=== PATIENT | female | born 1940 | race Caucasian/White ===

== ENCOUNTER 2018-03-25 17:16 | Emergency (ER) | payer MEDICARE, SELFPAY ==
[2018-03-25] VITALS (7 sets, daily range): BP systolic 91–119; BP diastolic 54–71; PULSE 77–98; RESP 18–31; TEMP 36.4; O2SAT 92–100
--- NOTE | 2018-03-25 17:29 | ED_ITS ---
HPI - Alcohol <BRYANT Dos Santos - Last Filed: 03/25/18 22:30> General Chief Complaint: Toxicology Problem Stated Complaint: ALCOHOL WITHDRAWAL Time Seen by Provider: 03/25/18 17:28 Source: patient Mode of arrival: ambulatory Limitations: no limitations History of Present Illness HPI narrative: 78-year-old female with history of alcohol abuse here for complaint of desired to have inpatient alcohol detox treatment. She states her last drink was just prior to arrival. She does not know how many drinks she had today. She reports having had alcohol problem for the last for 5 years. She denies any suicidal homicidal ideation. She denies any complications with alcohol withdrawal. She denies any drug use. No other concerns or complaints at this time. MD complaint: desires rehab Related Data Previous Rx's Medication Instructions Recorded fluoxetine 20 mg capsule 20 mg PO DAILY #30 cap 03/21/18 pantoprazole 40 mg tablet,delayed 40 mg PO DAILY #30 tab 03/21/18 release lorazepam [Ativan] 1 mg PO BEDTIME #18 tab 03/25/18 ondansetron [Zofran ODT] 4 mg PO Q6-8H PRN #12 tab 03/25/18 Allergies Allergy/AdvReac Type Severity Reaction Status Date / Time No Known Drug Allergies Allergy Verified 03/21/18 13:24 Review of Systems <BRYANT Dos Santos - Last Filed: 03/25/18 22:30> Review of Systems Patient desires alcohol detox treatment Constitutional Denies chills, Denies fever(s), Denies lethargy and Denies weakness Eyes Denies change in vision, Denies eye discharge, Denies irritation and Denies loss of vision Cardiovascular Denies chest pain, Denies irregular heart rhythm, Denies lightheadedness, Denies palpitations, Denies dyspnea, Denies dyspnea on exertion and Denies orthopnea Respiratory Denies cough, Denies dyspnea, Denies dyspnea on exertion and Denies wheezing Gastrointestinal Gastrointestinal: Denies abdominal pain, Denies change in bowel habits, Denies diarrhea, Denies nausea and Denies vomiting Genitourinary Denies hematuria, Denies flank pain, Denies urinary incontinence and Denies urinary urgency Musculoskeletal Denies back pain, Denies muscle weakness, Denies numbness and Denies tingling Integumentary/Breasts Denies pruritus, Denies erythema, Denies rash and Denies wounds Neurologic Denies confusion, Denies loss of vision, Denies numbness, Denies tingling and Denies weakness Psychiatric Denies anxiety, Denies confusion, Denies depression, Denies homicidal ideation and Denies suicidal ideation Endocrine Denies palpitations Hematologic/Lymphatic Denies easy bruising Allergic/Immunologic Denies wheezing Exam <BRYANT Dos Santos - Last Filed: 03/25/18 22:30> Initial Vital Signs Initial Vital Signs: Vital Signs Temperature 97.6 F 03/25/18 17:19 Pulse Rate 87 03/25/18 17:19 Respiratory Rate 20 03/25/18 17:19 Blood Pressure 112/71 03/25/18 17:19 Pulse Oximetry 94 03/25/18 17:19 Const General: cooperative and well developed Nutritional Appearance: well nourished Orientation: alert, awake, oriented x3 and other Other: Appears to be intoxicated with alcohol HENMT Face and sinus: sinus tenderness Mouth: oral mucosae normal and moist mucous membranes Eyes Conjunctivae: conjunctivae normal Sclera: sclerae normal Pupils: PERRL EOM: EOM intact bilaterally Resp Effort & Inspection: normal respiratory effort, able to speak in complete sentences, no respiratory distress and no use of accessory muscles Auscultation: clear to auscultation bilaterally, no rales, no rhonchi and no wheezes Cardio Rate: regular rate Rhythm: regular rhythm Heart Sounds: no click, no gallops, no murmurs and no rubs Pulses: normal peripheral pulses GI Inspection: non-distended Palpation: soft, no hepatosplenomegaly, No guarding, No pulsatile mass and No tender Auscultation: normal bowel sounds Skin General: no rashes or lesions noted, No jaundice and No petechiae Neuro General: alert, oriented x3, gait normal and no focal motor deficits Speech: speech normal <Honorio Valentino DO - Last Filed: 03/26/18 06:11> Initial Vital Signs Initial Vital Signs: Vital Signs Temperature 97.6 F 03/25/18 17:19 Pulse Rate 87 03/25/18 17:19 Respiratory Rate 20 03/25/18 17:19 Blood Pressure 112/71 03/25/18 17:19 Pulse Oximetry 94 03/25/18 17:19 Course <BRYANT Dos Santos - Last Filed: 03/25/18 22:30> Orders Ordered: Discontinued Medications Sodium Chloride (Normal Saline 0.9%) 1,000 mls @ 1,000 mls/hr IV BOLUS ONE Stop: 03/25/18 18:41 Last Admin: 03/25/18 18:03 Dose: 1,000 mls/hr Lorazepam (Ativan) 1 mg IV NOW ONE Stop: 03/25/18 21:41 Last Admin: 03/25/18 22:42 Dose: Lorazepam (Ativan) 1 mg PO NOW ONE Stop: 03/25/18 21:41 Last Admin: 03/25/18 22:40 Dose: 1 mg Lorazepam (Ativan) 2 mg PO NOW ONE Stop: 03/25/18 22:12 Last Admin: 03/25/18 22:40 Dose: 2 mg Thiamine HCl (Vitamin B-1) 100 mg PO NOW ONE Stop: 03/25/18 17:43 Last Admin: 03/25/18 18:03 Dose: 100 mg Vital Signs - 8 hr 03/25/18 22:56 Pulse Rate 77 Respiratory Rate 18 Blood Pressure 119/62 Pulse Oximetry 97 <Honorio Valentino DO - Last Filed: 03/26/18 06:11> Orders Ordered: Discontinued Medications Sodium Chloride (Normal Saline 0.9%) 1,000 mls @ 1,000 mls/hr IV BOLUS ONE Stop: 03/25/18 18:41 Last Admin: 03/25/18 18:03 Dose: 1,000 mls/hr Lorazepam (Ativan) 1 mg IV NOW ONE Stop: 03/25/18 21:41 Last Admin: 03/25/18 22:42 Dose: Lorazepam (Ativan) 1 mg PO NOW ONE Stop: 03/25/18 21:41 Last Admin: 03/25/18 22:40 Dose: 1 mg Lorazepam (Ativan) 2 mg PO NOW ONE Stop: 03/25/18 22:12 Last Admin: 03/25/18 22:40 Dose: 2 mg Thiamine HCl (Vitamin B-1) 100 mg PO NOW ONE Stop: 03/25/18 17:43 Last Admin: 03/25/18 18:03 Dose: 100 mg Vital Signs - 8 hr 03/25/18 22:56 Pulse Rate 77 Respiratory Rate 18 Blood Pressure 119/62 Pulse Oximetry 97 MDM - Alcohol <Dimitri BRYANT Haines - Last Filed: 03/25/18 22:30> Lab Data Result diagrams: 03/25/18 17:45 03/25/18 17:45 Labs: Lab Results 03/25/18 03/25/18 Range/Units 17:45 17:45 WBC 4.3 L (4.5-11.0) X10^3/uL RBC 4.15 (4.0-5.2) X10^6/uL Hgb 14.7 (12.0-16.0) g/dL Hct 43.0 (36-46) % MCV 103.5 H (80-100) fL MCH 35.5 H (26-34) PG MCHC 34.3 (30-36) % RDW 14.4 (11.6-14.8) % Plt Count 240 (150-400) X10^3/uL Neut % (Auto) 54.7 (50-75) % Lymph % (Auto) 23.3 L (25-40) % [place] % (Auto) 15.5 H (3-14) % Eos % (Auto) 4.6 H (2-4) % Baso % (Auto) 1.9 (0-2) % Neut # (Auto) 2400 L (4323-5727) /uL Sodium 144 (137-145) mmol/L Potassium 4.1 (3.4-5.1) mmol/L Chloride 107 (98-107) mmol/L Carbon Dioxide 24 (22-32) mmol/L BUN 8 (7-17) mg/dL Creatinine 0.60 (0.52-1.04) mg/dL Estimated GFR > 60.0 (>60) mL/min BUN/Creatinine Ratio 13.3 (6-22) Glucose 90 (80-110) mg/dL Calcium 8.9 (8.4-10.2) mg/dL Magnesium 2.1 (1.6-2.3) mg/dL Total Bilirubin 0.5 (0.2-1.3) mg/dL Conjugated Bilirubin 0.0 (0.0-0.3) md/dL Unconjugated Bilirubin 0.0 (0.0-1.1) mg/dL AST 125 H (14-36) IU/L ALT 62 H (9-52) IU/L Alkaline Phosphatase 68 (38-126) U/L Total Protein 7.1 (6.3-8.2) g/dL Albumin 4.2 (3.5-5.0) g/dL Globulin 2.9 (1.7-4.1) g/dL Albumin/Globulin Ratio 1.4 (1.0-2.8) Lipase 344 H (23-300) U/L Ethyl Alcohol 270 mg/dL Point of Care Testing Breathalizer 134 MDM Narrative Medical decision making narrative: Patient initial blood alcohol level was 0.27. This was reduced down .134 after a few hours. [facility] she does not have a bed available until 10 o' clock in the morning. Patient desires to go home at this time. She is provided with prescription for Ativan taper dose and also Zofran to help with nausea. Patient was strongly instructed not to drink and use Ativan. She states that she would only use the Ativan. She will follow up [facility] the morning. She was given some Ativan in the emergency room to help with detox symptoms. For any worsening symptoms return to the emergency room. <Honorio Valentino, DO - Last Filed: 03/26/18 06:11> Lab Data Labs: Lab Results 03/25/18 03/25/18 Range/Units 17:45 17:45 WBC 4.3 L (4.5-11.0) X10^3/uL RBC 4.15 (4.0-5.2) X10^6/uL Hgb 14.7 (12.0-16.0) g/dL Hct 43.0 (36-46) % MCV 103.5 H (80-100) fL MCH 35.5 H (26-34) PG MCHC 34.3 (30-36) % RDW 14.4 (11.6-14.8) % Plt Count 240 (150-400) X10^3/uL Neut % (Auto) 54.7 (50-75) % Lymph % (Auto) 23.3 L (25-40) % [place] % (Auto) 15.5 H (3-14) % Eos % (Auto) 4.6 H (2-4) % Baso % (Auto) 1.9 (0-2) % Neut # (Auto) 2400 L (0890-6390) /uL Sodium 144 (137-145) mmol/L Potassium 4.1 (3.4-5.1) mmol/L Chloride 107 (98-107) mmol/L Carbon Dioxide 24 (22-32) mmol/L BUN 8 (7-17) mg/dL Creatinine 0.60 (0.52-1.04) mg/dL Estimated GFR > 60.0 (>60) mL/min BUN/Creatinine Ratio 13.3 (6-22) Glucose 90 (80-110) mg/dL Calcium 8.9 (8.4-10.2) mg/dL Magnesium 2.1 (1.6-2.3) mg/dL Total Bilirubin 0.5 (0.2-1.3) mg/dL Conjugated Bilirubin 0.0 (0.0-0.3) md/dL Unconjugated Bilirubin 0.0 (0.0-1.1) mg/dL AST 125 H (14-36) IU/L ALT 62 H (9-52) IU/L Alkaline Phosphatase 68 (38-126) U/L Total Protein 7.1 (6.3-8.2) g/dL Albumin 4.2 (3.5-5.0) g/dL Globulin 2.9 (1.7-4.1) g/dL Albumin/Globulin Ratio 1.4 (1.0-2.8) Lipase 344 H (23-300) U/L Ethyl Alcohol 270 mg/dL Point of Care Testing Breathalizer 134 Discharge Plan Departure Patient Disposition: Home Clinical Impression: Alcohol withdrawal syndrome Discharge Date/Time: 03/25/18 22:59 Interventions: ED Discharge Assessment Last Done: 03/25/18 22:56 Instructions: DI for Alcohol Abuse Activity Restrictions/Additional Instructions: [facility] have a bed available at 10 o' clock in the morning. Drive there in the morning to be there at 10 o'clock. You are prescribed an Ativan taper dose to help with alcohol withdrawal symptoms use as directed. You also prescribed Zofran help with nausea also use as directed. Follow up with her primary care provider. Return emergency room for any worsening symptoms. Do not drink alcohol and use Ativan at the same time. If you drink do not use the Ativan. Prescriptions: New lorazepam [Ativan] 1 mg tablet 1 mg PO BEDTIME Qty: 18 RF: 0 ondansetron [Zofran ODT] 4 mg tablet,disintegrating 4 mg PO Q6-8H PRN (Reason: nausea and vomiting) Qty: 12 RF: 0 No Action pantoprazole 40 mg tablet,delayed release (DR/EC) 40 mg PO DAILY Qty: 30 RF: 0 fluoxetine 20 mg capsule 20 mg PO DAILY Qty: 30 RF: 1 Referrals: Tyson Agarwal MD [Primary Care Provider] - <Honorio Valentino DO - Last Filed: 03/26/18 06:11> [facility] Att[facility]: I was immediately available in the department for consultation. Documentation has been reviewed. I agree with assessment and plan.
--- NOTE | 2018-03-25 17:52 | PC.NURSE ---
Pt cannot do breathalizer. Attempts x4
[2018-03-25] MEDS: SODIUM CHLORIDE 0.9% 1,000 ML 1000 ML IV (18:03)
[2018-03-25] MEDS: THIAMINE 100 MG TABLET PO (18:03)
[2018-03-25 18:05] LABS: Add Manual Diff / Slide Review NO; Basophils Percent Auto 1.9 % (0-2); Eosinophils Percent Auto 4.6 % (2-4); Hemoglobin 14.7 g/dL (12.0-16.0); Lymphocytes Percent Auto 23.3 % (25-40); Mean Corpuscular HGB Conc 34.3 % (30-36); Mean Corpuscular Hemoglobin 35.5 PG (26-34); Mean Corpuscular Volume 103.5 fL (80-100); Monocytes Percent Auto 15.5 % (3-14); Neutrophils Absolute Auto 2400 /uL (3000-5900); Neutrophils Percent Auto 54.7 % (50-75); Platelet Count 240 X10^3/uL (150-400); Red Blood Cell Count 4.15 X10^6/uL (4.0-5.2); Red Cell Distribution Width 14.4 % (11.6-14.8); White Blood Cell Count 4.3 X10^3/uL (4.5-11.0)
[2018-03-25 18:20] LABS: Alanine Aminotransferase 62 IU/L (9-52); Albumin 4.2 g/dL (3.5-5.0); Albumin Globulin Ratio 1.4 (1.0-2.8); Alkaline Phosphatase 68 U/L (38-126); Aspartate Aminotransferase 125 IU/L (14-36); BUN Creatinine Ratio 13.3 (6-22); Bilirubin Total 0.5 mg/dL (0.2-1.3); Blood Urea Nitrogen 8 mg/dL (7-17); Calcium 8.9 mg/dL (8.4-10.2); Carbon Dioxide 24 mmol/L (22-32); Chloride 107 mmol/L (98-107); Estimated Glomerular Filt Rate > 60.0 mL/min (>60); Globulin 2.9 g/dL (1.7-4.1); Glucose 90 mg/dL (80-110); HEMOLYSIS < 15 (0-50); Lipase 344 U/L (23-300); Magnesium 2.1 mg/dL (1.6-2.3); Potassium 4.1 mmol/L (3.4-5.1); Sodium 144 mmol/L (137-145); Total Protein 7.1 g/dL (6.3-8.2)
--- NOTE | 2018-03-25 18:35 | PC.NURSE ---
Pt given phone number to [facility]. Expl need for her to go through their screening process prior to being accepted for detox. Pt states a number of reasons why she cant call. Number is given to for him to assist her with this.
[2018-03-25 18:45] LABS: Ethanol (ETOH) 270 mg/dL
[2018-03-25] MEDS: LORazepam 0.5 MG TABLET 2 MG PO (22:40)
[2018-03-25] MEDS: LORazepam 0.5 MG TABLET 1 MG PO (22:40)
--- NOTE | 2018-03-25 22:40 | PC.NURSE ---
1mg atavan given in ed. 2mg sent home with pt per [facility] with directions for administration given by [facility] to pt and pt spouse Skip.
== END 2018-03-25 22:59 | disposition home or self-care (01) ==
PROVIDERS: Emergency Provider Nurse Practitioner Family; Family Provider Student in an Organized Health Care Education/Training Program; PCP Student in an Organized Health Care Education/Training Program
DX: F10.239 Alcohol dependence with withdrawal, unspecified (principal)
CPT/HCPCS: 36591; 80053; 80076; 80320; 82075; 83690; 83735; 85025; 96360; 99283; 99284

== ENCOUNTER 2018-06-25 14:52 | Emergency (ER) | payer MEDICARE, SELFPAY ==
[2018-06-25 14:52] VITALS: BP 149/91; PULSE 72; RESP 14; TEMP 36.8; O2SAT 98
--- NOTE | 2018-06-25 15:15 | DI.RAD.S_ITS ---
PROCEDURE: XR CHEST 1V INDICATIONS: fall off ladder rib pain TECHNIQUE: One view of the chest was acquired. COMPARISON: None. FINDINGS: Surgical changes and devices: None. Lungs and pleura: No pleural effusions or pneumothorax. Lungs are clear. Mediastinum: Mediastinal contours appear normal. Heart size is enlarged. Bones and chest wall: There is suggestion of a nondisplaced fracture involving right posterior sixth rib. Overlying soft tissues appear unremarkable. IMPRESSION: No acute cardiopulmonary pathology. Nondisplaced fracture involving right posterior sixth rib. Dictated by: Alex Rodríguez M.D. on 06/25/2018 at 16:15 Approved by: Alex Rodríguez M.D. on 06/25/2018 at 16:16
--- NOTE | 2018-06-25 15:15 | ED.FALL ---
HPI - Fall General Chief Complaint: Trauma Stated Complaint: Fall, R hip pain Time Seen by Provider: 06/25/18 14:59 Source: EMS Mode of arrival: EMS Limitations: no limitations History of Present Illness HPI Narrative: Patient is a 78-year-old female who presents after a 6 ft fall off a ladder. She was getting into her attic when she fell onto her right side onto carpet. She landed on her right side complaining of mostly right chest pain. No head injury or neck pain no loss of consciousness. She does take aspirin all once daily. She also has a history of alcohol abuse and intoxication. No hip pain or back pain. She is able to move all her extremities. Her was there when she fell. MD complaint: fall Onset (ago): hour(s) Fall from: from height (distance) (Approximately 6 ft) Fall witnessed: yes, by family Place fall occurred: home Loss of consciousness: none Prolonged down time: no Symptoms prior to fall: none Context: alcohol use Related Data Home Medications Medication Instructions Recorded Confirmed aspirin 325 mg PO DAILY 06/25/18 06/25/18 Previous Rx's Medication Instructions Recorded bupropion HCl XL 150 mg 24 hr 150 mg PO QAM #30 tab 04/16/18 tablet, extended release fluoxetine 40 mg capsule 40 mg PO DAILY #30 cap 04/16/18 alprazolam 0.5 mg tablet 0.5 mg PO BID PRN #60 tab 06/05/18 hydrocodone-acetaminophen [[facility]] 1 tab PO Q4-6H PRN #10 tab 06/25/18 Allergies Allergy/AdvReac Type Severity Reaction Status Date / Time No Known Drug Allergies Allergy Verified 06/25/18 15:00 Review of Systems Review of Systems All systems reviewed & are unremarkable except as noted in HPI and below Constitutional Denies chills, Denies fever(s), Denies lethargy and Denies weakness Cardiovascular Reports chest pain (Right-sided), Denies irregular heart rhythm, Denies lightheadedness, Denies palpitations, Denies dyspnea, Denies dyspnea on exertion and Denies orthopnea Respiratory Denies cough, Denies dyspnea, Denies dyspnea on exertion and Denies wheezing Gastrointestinal Gastrointestinal: Denies abdominal pain, Denies change in bowel habits, Denies diarrhea, Denies nausea and Denies vomiting Musculoskeletal Reports as per HPI Integumentary/Breasts Denies pruritus, Denies erythema, Denies rash and Denies wounds Neurologic Denies weakness Endocrine Denies palpitations Allergic/Immunologic Denies wheezing Exam Initial Vital Signs Initial Vital Signs: Vital Signs Temperature 98.2 F 06/25/18 14:52 Pulse Rate 72 06/25/18 14:52 Respiratory Rate 14 06/25/18 14:52 Blood Pressure 149/91 H 06/25/18 14:52 Pulse Oximetry 98 06/25/18 14:52 Const General: cooperative and No acute distress Nutritional Appearance: average body habitus Orientation: alert, awake and oriented x3 HENMT Head: normal to inspection, normocephalic and atraumatic Nose: external nose normal Face and sinus: normal facial exam Mouth: oral mucosae normal Eyes General: appearance normal, both eyes and all related structures Pupils: PERRL EOM: EOM intact bilaterally Neck Neck: normal visual inspection, No midline deformity and No tender Other: C-collar placed in ED Chest Chest: normal inspection of the chest, No crepitus and tenderness (Right posterior ribs around T8, no contusion no abrasion no sign of trauma no paradoxical movement) Resp Effort & Inspection: normal respiratory effort and able to speak in complete sentences Auscultation: clear to auscultation bilaterally, no rales, no rhonchi and no wheezes Cardio Rate: regular rate Rhythm: regular rhythm Heart Sounds: S1 normal and S2 normal GI Palpation: soft, No firm and No tender Percussion: normal to percussion Back/Spine/Pelvis Back: normal to inspection Cervical Spine: collar present (Placed in ED) and No step off deformity Thoracic/Lumbar Spine: lumbar spinal tenderness Sacroiliac Joints: nontender Coccyx: no swelling Skin General: no rashes or lesions noted, No jaundice and No petechiae Neuro General: alert, oriented x3, gait normal and no focal motor deficits Speech: speech normal Extrem General: normal to inspection and full ROM Right upper extremity: normal to inspection Left upper extremity: normal to inspection Right lower extremity: normal to inspection Left lower extremity: normal to inspection [facility] Medical History Alcoholism (Chronic ~2012) Anxiety (Chronic) Depression (Chronic) Osteoporosis (Chronic 2012) Polyarthritis (Chronic) Right forearm fracture (Resolved 10/2015) Synovitis of right knee (Resolved 07/2017) Surgical History History of colonoscopy (Resolved 04/23/17) History of right knee surgery (Resolved 08/07/17) 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 Grandfather No problems noted. Grandmother No problems noted. Brother No problems noted. Sister No problems noted. Family/Other Breast cancer Social History Smoking Status: Never smoker Course Orders Ordered: Discontinued Medications Hydrocodone Bitart/Acetaminophen (Vicodin Prepack) 1 bottle MISC SEEINSTR ONE Stop: 06/25/18 17:52 Hydromorphone HCl (Dilaudid) 0.5 mg IV NOW ONE Stop: 06/25/18 15:23 Last Admin: 06/25/18 15:25 Dose: 0.5 mg Vital Signs - 8 hr 06/25/18 14:52 06/25/18 15:29 Temperature 98.2 F Pulse Rate 72 88 Respiratory Rate 14 18 Blood Pressure 149/91 H Blood Pressure [Left Arm] 151/84 H Pulse Oximetry 98 98 MDM - Fall Medical Records Attestation: I reviewed the patient's medical records. Lab Data Attestation: I reviewed the patient's lab results. Result diagrams: 06/25/18 15:08 06/25/18 15:08 Lab Results 06/25/18 06/25/18 06/25/18 Range/Units 15:08 15:08 15:08 WBC 10.8 (4.5-11.0) X10^3/uL RBC 4.04 (4.0-5.2) X10^6/uL Hgb 12.7 (12.0-16.0) g/dL Hct 37.7 (36-46) % MCV 93.3 (80-100) fL MCH 31.3 (26-34) PG MCHC 33.6 (30-36) % RDW 15.5 H (11.6-14.8) % Plt Count 272 (150-400) X10^3/uL Neut % (Auto) 83.5 H (50-75) % Lymph % (Auto) 10.0 L (25-40) % [place] % (Auto) 5.8 (3-14) % Eos % (Auto) 0.3 L (2-4) % Baso % (Auto) 0.4 (0-2) % Neut # (Auto) 9000 H (4931-2953) /uL PT 11.2 (10.1-12.7) SECONDS INR 1.0 (0.9-1.3) APTT 26 L (26.4-36.2) SECONDS Sodium 143 (137-145) mmol/L Potassium 4.0 (3.4-5.1) mmol/L Chloride 104 (98-107) mmol/L Carbon Dioxide 22 (22-32) mmol/L BUN 10 (7-17) mg/dL Creatinine 0.60 (0.52-1.04) mg/dL Estimated GFR > 60.0 (>60) mL/min BUN/Creatinine Ratio 16.7 (6-22) Glucose 109 (80-110) mg/dL Calcium 9.2 (8.4-10.2) mg/dL Total Bilirubin 0.4 (0.2-1.3) mg/dL AST 116 H (14-36) IU/L ALT 52 (9-52) IU/L Alkaline Phosphatase 96 (38-126) U/L Total Protein 7.2 (6.3-8.2) g/dL Albumin 4.2 (3.5-5.0) g/dL Globulin 3.0 (1.7-4.1) g/dL Albumin/Globulin Ratio 1.4 (1.0-2.8) Lipase 168 (23-300) U/L Urine Color Urine Appearance Urine pH (4.5-8.0) Ur Specific Salters (1.000-1.035) Urine Protein (Negative) Urine Glucose (UA) (Normal) g/dL Urine Ketones (NEGATIVE) Urine Occult Blood (Negative) Urine Nitrate (Negative) Urine Bilirubin (NEGATIVE) Urine Urobilinogen (0.2) E.U./dL Ur Leukocyte Esterase (NEGATIVE) Urine RBC (0-5/HPF) Urine WBC (0-5/HPF) Ur Squamous Epith Cells Urine Bacteria (None) Ur Culture Indicated? Micro UA Comment Ethyl Alcohol 94 mg/dL 06/25/18 Range/Units 17:40 WBC (4.5-11.0) X10^3/uL RBC (4.0-5.2) X10^6/uL Hgb (12.0-16.0) g/dL Hct (36-46) % MCV (80-100) fL MCH (26-34) PG MCHC (30-36) % RDW (11.6-14.8) % Plt Count (150-400) X10^3/uL Neut % (Auto) (50-75) % Lymph % (Auto) (25-40) % [place] % (Auto) (3-14) % Eos % (Auto) (2-4) % Baso % (Auto) (0-2) % Neut # (Auto) (3070-1455) /uL PT (10.1-12.7) SECONDS INR (0.9-1.3) APTT (26.4-36.2) SECONDS Sodium (137-145) mmol/L Potassium (3.4-5.1) mmol/L Chloride (98-107) mmol/L Carbon Dioxide (22-32) mmol/L BUN (7-17) mg/dL Creatinine (0.52-1.04) mg/dL Estimated GFR (>60) mL/min BUN/Creatinine Ratio (6-22) Glucose (80-110) mg/dL Calcium (8.4-10.2) mg/dL Total Bilirubin (0.2-1.3) mg/dL AST (14-36) IU/L ALT (9-52) IU/L Alkaline Phosphatase (38-126) U/L Total Protein (6.3-8.2) g/dL Albumin (3.5-5.0) g/dL Globulin (1.7-4.1) g/dL Albumin/Globulin Ratio (1.0-2.8) Lipase (23-300) U/L Urine Color Yellow Urine Appearance Clear Urine pH 5.5 (4.5-8.0) Ur Specific Salters <=1.005 (1.000-1.035) Urine Protein Negative (Negative) Urine Glucose (UA) Negative (Normal) g/dL Urine Ketones Trace H (NEGATIVE) Urine Occult Blood 1+ H (Negative) Urine Nitrate Negative (Negative) Urine Bilirubin Negative (NEGATIVE) Urine Urobilinogen 0.2 (0.2) E.U./dL Ur Leukocyte Esterase Negative (NEGATIVE) Urine RBC 0-1/hpf (0-5/HPF) Urine WBC 0-1/hpf (0-5/HPF) Ur Squamous Epith Cells 0-1 /hpf Urine Bacteria None seen (None) Ur Culture Indicated? Cult not indicated Micro UA Comment Not Reportable Ethyl Alcohol mg/dL Imaging Data CT scan - head: Radiologist's impression: [address] [address] [address] Scan Report Signed Patient: Rhiannon Gabriel MR#: [id number] : 1940 Acct:[id number] Age/Sex: 78 / F Date of Service: 06/25/18 Loc: ED Accession Number: [id number] Procedure: CT head/brain wo con Ordering Provider: Mary Alice Damico D.O. PROCEDURE: CT HEAD/BRAIN WO CON INDICATIONS: fall off ladder TECHNIQUE: Noncontrast 4.5 mm thick angled axial sections acquired from the foramen magnum to the vertex, with coronal and sagittal reformats. For radiation dose reduction, the following was used: automated exposure control, adjustment of mA and/or kV according to patient size. COMPARISON: None. FINDINGS: Image quality: Excellent. CSF spaces: Basal cisterns are patent. No extra-axial fluid collections. The ventricles are symmetric in size and shape. Brain: No intracranial bleeds or masses. There is cerebral volume loss for age, with resultant ventricular and sulcal prominence. There are periventricular and deep white matter chronic small vessel ischemic changes. There is intracranial internal carotid artery atherosclerosis. Skull and face: Calvarium and visualized facial bones appear intact, without suspicious lesions. Sinuses: Visualized sinuses and mastoids are clear. IMPRESSION: No CT evidence of acute intracranial pathology. Age-appropriate atrophy and mild periventricular white matter microangiopathic changes. Dictated by: Alex Rodríguez M.D. on 06/25/2018 at 16:43 CT-C spine: Radiologist's impression: PROCEDURE: CT CERVICAL SPINE WO CON INDICATIONS: fall off ladder TECHNIQUE: Noncontrast 3 mm thick sections acquired from the skull base to the T4 level. Sagittal and coronal reformats were then constructed. For radiation dose reduction, the following was used: automated exposure control, adjustment of mA and/or kV according to patient size. COMPARISON: None. FINDINGS: Image quality: Excellent. Bones: There is straightening of normal cervical lordosis. No fractures or dislocations. Degenerative endplate changes and bilateral uncinate hypertrophic changes are noted throughout the cervical spine causing mild to moderate central canal stenosis and bilateral neuroforaminal narrowing more prominent at C5-6 and C6-7 levels. Visualized superior ribs are intact. Soft tissues: Prevertebral soft tissues are normal in thickness. No paravertebral hematomas. No apical pneumothoraces. Dependent atelectasis in posterior aspect of bilateral upper lung christianson are seen with possible contusion involving posterior aspect of the right upper lung field. IMPRESSION: No acute cervical spine fracture or dislocation. Degenerative disc disease throughout cervical spine. Dictated by: Alex Rodríguez M.D. on 06/25/2018 at 16:46 CT Chest/Ab/Pelvis: Radiologist's impression: PROCEDURE: CT CHEST ABD PEL W CON INDICATIONS: fall off ladder, right chest pain and RUQ pain TECHNIQUE: After the administration of intravenous contrast, 5 mm thick sections acquired from the lung apices to the symphysis. 2.5 mm thick coronal and sagittal reformats were acquired. Additional 7 mm thick coronal maximum intensity projection (MIP) reformats acquired through the lungs. Optional 10-minute delayed imaging may be performed from the kidneys to the bladder. For radiation dose reduction, the following was used: automated exposure control, adjustment of mA and/or kV according to patient size. COMPARISON: None. FINDINGS: Image quality: Excellent. CHEST: Lungs: Dependent atelectasis in posterior aspect of bilateral lymph nodes are seen. Subtle groundglass opacity in the anterolateral aspect of right middle lobe is seen, which may represent focal atelectasis versus contusion. No other airspace opacities. No pneumothorax or hemothorax. Central and peripheral airways appear patent and normal in caliber. Mediastinum: No mediastinal hematomas. Heart size is normal. No pericardial effusion. Thoracic aorta and pulmonary arteries demonstrate normal size and enhancement. No mediastinal or hilar adenopathy. Esophagus is normal in caliber. There is a small hiatal hernia. Chest wall: There is a nondisplaced fracture involving right posterior lateral sixth rib with adjacent pleural thickening. No other rib fracture is seen. No subcutaneous emphysema. No axillary or supraclavicular adenopathy. Thyroid gland is within normal limits. ABDOMEN: Solid organs: Liver is normal in size and enhancement, without lacerations. Gallbladder is surgically absent. Biliary system is non-dilated. Pancreas enhances normally, without transection. Mesenteric fat stranding and small amount of fluid is seen medial to the body and tail of pancreas and is closely adjacent to the left adrenal gland. Fat stranding in adjacent left retroperitoneal space is also seen. Spleen is normal in size and enhancement, without lacerations. No adrenal hematomas. Both kidneys enhance normally, without hydronephrosis or lacerations. Bilateral renal cysts are seen. Peritoneum and bowel: No free fluid or air. Unenhanced bowel loops demonstrate normal wall thickness and caliber. Nodes and vessels: No retroperitoneal or mesenteric adenopathy. Aorta and inferior vena cava are normal in size and enhancement. Miscellaneous: No ventral hernias. PELVIS: Genitourinary: Bladder wall thickness is normal. Miscellaneous: No inguinal hernias or adenopathy. Bones: Pelvic ring and hip joints appear intact. No vertebral compression fractures. There is a minimally displaced fracture involving right transverse process of L2. Degenerative disc disease throughout thoracic and lumbar spine is seen. IMPRESSION: 1. Minimally displaced fracture involving right posterior lateral sixth rib with adjacent pleural thickening and mild pulmonary contusion in posterior lateral aspect of right middle lobe and posterior aspect of right lower lobe. Dependent atelectasis is also seen in posterior aspect of bilateral lower lobes. No pneumothorax or pleural effusion. 2. No mediastinal hematoma. No mediastinal or hilar adenopathy. 3. Minimally displaced fracture involving right transverse process of L2. No other fracture or dislocation is seen. 4. Fat stranding and small amount of fluid seen in the left upper quadrant posteromedial to body and tail of pancreas and surrounding the left adrenal gland, suspicious for traumatic injury involving left adrenal gland, suggest clinical correlation and followup. No definite transection of the pancreas is seen. No gross abnormality is seen in adjacent spleen and left kidney. 5. No peritoneal free air. No bowel obstruction. No other solid organ injury within abdomen or pelvis. Findings were discussed with Dr. Damico in the ER at 5 PM on 06/25/18. Dictated by: Alex Rodríguez M.D. on 06/25/2018 at 16:52 ECG Data Attestation: I personally reviewed and interpreted this ECG as follows: Interpretation: Normal sinus rhythm rate 81 [place] interval [address] changes no T-wave inversions similar to previous EKG in August 2017 MDM Narrative Medical decision making narrative: I have called and spoken with Dr. Cody in regards to adrenal stranding. At this time no intervention. Does recommend checking UA. I spoke with Dr. [facility] in regards to L2 transverse process fracture. She agrees with outpatient follow-up Patient feels ready and able to go home Discharge Plan Departure Patient Disposition: Home Clinical Impression: Closed rib fracture, Fracture of transverse process of lumbar vertebra Discharge Date/Time: 06/25/18 18:27 Interventions: ED Discharge Assessment Last Done: 06/25/18 18:27 Instructions: DI for Rib Fracture, DI for Transverse Process Fracture Activity Restrictions/Additional Instructions: *You have been diagnosed with L2 transverse process fracture, rib fracture *What to do: Also noted to have some mild inflammation on the left side unknown if this is related to the fall or not. Pain control, may use a pillow to help splint rib fracture Both fracture should heal on their own without surgery the incentive spirometer 10 times an hour while awake to help prevent pneumonia *Continue to take medications as directed [facility] 1 tab every 4 hr or 2 tabs every 6 hr *Follow up with your primary care provider in 2-3 days, call Orthopedics tomorrow to schedule follow up appointment with a spine doctor *Return to ER if you should have increasing pain, shortness of breath, weakness in legs, loss of urine or stool or any new, worsening or concerning symptoms CONTROLLED SUBSTANCE DISCHARGE (Narcotoic/benzodiazepine/Flexeril/Phenergan) 1. You have been prescribed narcotic medications, it does have acetaminophen/Tylenol/paracetamol in it so do not take extra Tylenol or Tylenol containing products 2. Please understand that we cannot provide further refills of narcotics, benzodiazepines or controlled substances through the ED and her pain management will need to be through your provider. 3. While on these medications you cannot drive or operate heavy machinery. 4. You cannot sign legal documents or perform any duties such as this. 5. As long as you're taking opiate pain medications he should also be taking a stool softener such as Colace, Dulcolax, MiraLAX or prune juice, to help avoid constipation. Prescriptions: New hydrocodone-acetaminophen [[facility]] 5-325 mg tablet 1 tab PO Q4-6H PRN (Reason: pain) Qty: 10 RF: 0 No Action fluoxetine 40 mg capsule 40 mg PO DAILY Qty: 30 RF: 1 bupropion HCl [Wellbutrin XL] 150 mg tablet extended release 24 hr 150 mg PO QAM Qty: 30 RF: 5 alprazolam 0.5 mg tablet 0.5 mg PO BID PRN (Reason: anxiety) Qty: 60 RF: 0 aspirin 325 mg Tablet 325 mg PO DAILY RF: 0 Referrals: [facility] [Provider Group] Tyson Agarwal MD [Primary Care Provider] -
[2018-06-25 15:24] LABS: Add Manual Diff / Slide Review NO; Basophils Percent Auto 0.4 % (0-2); Eosinophils Percent Auto 0.3 % (2-4); Hematocrit 37.7 % (36-46); Hemoglobin 12.7 g/dL (12.0-16.0); Mean Corpuscular HGB Conc 33.6 % (30-36); Mean Corpuscular Hemoglobin 31.3 PG (26-34); Mean Corpuscular Volume 93.3 fL (80-100); Monocytes Percent Auto 5.8 % (3-14); Neutrophils Absolute Auto 9000 /uL (1500-7000); Neutrophils Percent Auto 83.5 % (50-75); Platelet Count 272 X10^3/uL (150-400); Red Blood Cell Count 4.04 X10^6/uL (4.0-5.2); Red Cell Distribution Width 15.5 % (11.6-14.8); White Blood Cell Count 10.8 X10^3/uL (4.5-11.0)
[2018-06-25 15:25] LABS: Prothrombin Time 11.2 SECONDS (10.1-12.7)
[2018-06-25] MEDS: HYDROMORPHONE 1 MG INJ 0.5 MG IV (15:25)
[2018-06-25 15:27] LABS: PTT Partial Thromboplastin Tim 26 SECONDS (26.4-36.2)
[2018-06-25 15:29] VITALS: BP 151/84; PULSE 88; RESP 18; O2SAT 98
[2018-06-25 16:16] LABS: Alanine Aminotransferase 52 IU/L (9-52); Albumin 4.2 g/dL (3.5-5.0); Albumin Globulin Ratio 1.4 (1.0-2.8); Alkaline Phosphatase 96 U/L (38-126); Aspartate Aminotransferase 116 IU/L (14-36); BUN Creatinine Ratio 16.7 (6-22); Bilirubin Total 0.4 mg/dL (0.2-1.3); Blood Urea Nitrogen 10 mg/dL (7-17); Calcium 9.2 mg/dL (8.4-10.2); Carbon Dioxide 22 mmol/L (22-32); Chloride 104 mmol/L (98-107); Estimated Glomerular Filt Rate > 60.0 mL/min (>60); Ethanol (ETOH) 94 mg/dL; Glucose 109 mg/dL (80-110); HEMOLYSIS < 15 (0-50); Lipase 168 U/L (23-300); Sodium 143 mmol/L (137-145); Total Protein 7.2 g/dL (6.3-8.2)
[2018-06-25 17:49] LABS: Bacteria Urine None Seen
[2018-06-25 17:52] LABS: Appearance Urine UA CLEAR; Bilirubin Urine UA NEGATIVE (NEGATIVE); Color Urine UA YELLOW; Glucose Urine UA NEGATIVE (Normal); Ketones Urine UA TRACE (NEGATIVE); Leukocyte Esterase Urine UA NEGATIVE (NEGATIVE); Nitrite Urine UA NEGATIVE (Negative); Occult Blood Urine UA 1+ (Negative); Protein Urine UA NEGATIVE (Negative); Specific Gravity Urine UA <=1.005 (1.000-1.035); Urobilinogen Urine UA 0.2 E.U./dL (0.2); pH Urine UA 5.5 (4.5-8.0)
[2018-06-25 17:58] LABS: Culture Indicated Urine Cult Not Indicated; RBC Urine 0-1/HPF (0-5/HPF); Squamous Epithelial Cell Urine 0-1 /HPF; WBC Urine 0-1/HPF (0-5/HPF)
[2018-06-25 17:59] VITALS: BP 152/92; PULSE 89; RESP 14; O2SAT 99
== END 2018-06-25 18:27 | disposition home or self-care (01) ==
PROVIDERS: Emergency Provider Emergency Medicine; Family Provider Student in an Organized Health Care Education/Training Program; PCP Student in an Organized Health Care Education/Training Program
DX: S32.009A Unspecified fracture of unspecified lumbar vertebra, initial encounter for closed fracture (principal); S22.31XA Fracture of one rib, right side, initial encounter for closed fracture; W11.XXXA Fall on and from ladder, initial encounter
CPT/HCPCS: 36591; 70450; 71045; 71260; 72125; 74177; 80053; 80320; 81001; 83690; 85025; 85610; 85730; 93005; 99283; 99285; J1170; Q9967

== ENCOUNTER → 2018-11-05 10:36 | Outpatient (CLI) | payer MEDICARE, SELFPAY ==
--- NOTE | 2018-11-05 | DI.MG.S_ITS ---
BILATERAL DIGITAL SCREENING MAMMOGRAM 3D/2D WITH CAD: 11/05/2018 CLINICAL: Routine screening. Family history of breast cancer. Comparison is made to exams dated: 11/10/2016 mammogram - [facility], 04/20/2015 mammogram, 04/09/2014 mammogram, and 07/10/2012 mammogram - [facility]. There are scattered fibroglandular elements in both breasts. Current study was also evaluated with a Computer Aided Detection (CAD) system. No significant masses, calcifications, or other findings are seen in either breast. There has been no significant interval change. IMPRESSION: NEGATIVE There is no mammographic evidence of malignancy. A 1 year screening mammogram is recommended. This exam was interpreted at Station ID: [id number]. NOTE: For mammograms, a report in lay terms will be sent to the patient. Approximately 15% of breast malignancies will not be visualized mammographically. In the management of a palpable breast mass, a negative mammogram must not discourage biopsy of a clinically suspicious lesion. Electronically Signed By: Kareem smith/yesy:11/05/2018 18:32:00 letter sent: Normal Exam ACR BI-RADS Category 1: Negative [id number]
== END ==
PROVIDERS: Family Provider Student in an Organized Health Care Education/Training Program; PCP Student in an Organized Health Care Education/Training Program; Visit Provider Student in an Organized Health Care Education/Training Program
DX: Z12.31 Encounter for screening mammogram for malignant neoplasm of breast (principal); Z80.3 Family history of malignant neoplasm of breast
CPT/HCPCS: 77063; 77067

== ENCOUNTER 2018-12-02 09:18 | Emergency (ER) | payer MEDICARE, SELFPAY ==
[2018-12-02] VITALS (14 sets, daily range): BP systolic 111–146; BP diastolic 71–98; PULSE 69–92; RESP 12–26; TEMP 37.1; O2SAT 95–100
--- NOTE | 2018-12-02 09:40 | DI.RAD.S_ITS ---
PROCEDURE: XR WRIST LT MIN 3V INDICATIONS: injury TECHNIQUE: 3 views of the wrist were acquired. COMPARISON: None. FINDINGS: Bones: No dislocations. No suspicious bony lesions. There is a complex comminuted impacted and displaced fracture involving the distal radius and ulna, intra-articular Scaphoid view: Not obtained of the scaphoid visualized appears normal. Soft tissues: No suspicious soft tissue calcifications. IMPRESSION: Relatively severe central fractures involving the distal radius and ulna as discussed. Dictated by: Andrea Reddy M.D. on 12/02/2018 at 10:03 Approved by: Andrea Reddy M.D. on 12/02/2018 at 10:03
--- NOTE | 2018-12-02 10:41 | ED.UPPEXIN ---
HPI - Extremity Injury (Upper) General Chief Complaint: Extremity Injury, Upper Stated Complaint: broke hand 2 days ago, blisters around cast Time Seen by Provider: 12/02/18 09:40 Source: patient Mode of arrival: ambulatory Limitations: no limitations History of Present Illness HPI narrative: Patient comes to the emergency department complaining of pain and swelling in her left hand after wrist fracture 2 days ago. Patient was in [place] and tripped over a curb and fell, fracturing her left wrist. Extensive workup was done to rule out other injury, and patient was admitted for observation to the trauma service. Orthopedic consult was done, according to records, wrist was reduced, and splint was placed. Patient states that over the last couple of days, she has noticed increasing tense edema in her hand with discoloration and blistering. She also reports some numbness over the dorsum of her hand. Patient denies fevers. She states that she was only in [place] for a memorial service, and then came back here yesterday, where her home is. Patient has not yet attempted to make an appointment with Orthopedics. Related Data Home Medications Medication Instructions Recorded Confirmed aspirin 325 mg PO DAILY 06/25/18 08/27/18 oxycodone 5 mg PO Q4-6H PRN 12/02/18 12/02/18 Previous Rx's Medication Instructions Recorded acamprosate 333 mg tablet,delayed 666 mg PO TID #180 tab 08/27/18 release bupropion HCl XL 150 mg 24 hr 150 mg PO QAM #90 tab 09/02/18 tablet, extended release fluoxetine 40 mg capsule 40 mg PO DAILY #90 cap 10/01/18 alprazolam 0.5 mg tablet 0.5 mg PO BID PRN #60 tab 11/13/18 ondansetron 4 mg PO Q6-8H PRN #14 tab 12/02/18 Allergies Allergy/AdvReac Type Severity Reaction Status Date / Time No Known Drug Allergies Allergy Verified 12/02/18 10:08 Review of Systems Constitutional Denies chills, Denies fever(s), Denies lethargy and Denies weakness Eyes Denies change in vision, Denies eye discharge, Denies irritation and Denies loss of vision ENT Ears, Nose, Mouth, and Throat: Denies change in voice, Denies neck pain and Denies sore throat Cardiovascular Denies chest pain, Denies irregular heart rhythm, Denies lightheadedness, Denies palpitations, Denies dyspnea, Denies dyspnea on exertion and Denies orthopnea Respiratory Denies cough, Denies dyspnea, Denies dyspnea on exertion and Denies wheezing Gastrointestinal Gastrointestinal: Denies abdominal pain, Denies change in bowel habits, Denies diarrhea, Denies nausea and Denies vomiting Genitourinary Denies hematuria, Denies flank pain, Denies urinary incontinence and Denies urinary urgency Musculoskeletal Denies neck pain Comments: Left wrist pain and swelling Integumentary/Breasts Denies pruritus, Denies erythema, Denies rash and Denies wounds Neurologic Denies confusion, Denies loss of vision and Denies weakness Comments: Hand numbness, left Psychiatric Denies anxiety, Denies confusion, Denies depression, Denies homicidal ideation and Denies suicidal ideation Endocrine Denies palpitations Hematologic/Lymphatic Denies easy bruising Allergic/Immunologic Denies wheezing PFSH Medical History Alcoholism (Chronic ~2012) Anxiety (Chronic) Depression (Chronic) Osteoporosis (Chronic 2012) Polyarthritis (Chronic) Right forearm fracture (Resolved 10/2015) Synovitis of right knee (Resolved 07/2017) Surgical History History of colonoscopy (Resolved 04/23/17) History of right knee surgery (Resolved 08/07/17) 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 Grandfather No problems noted. Grandmother No problems noted. Brother No problems noted. Sister No problems noted. Family/Other Breast cancer Social History Smoking Status: Never smoker alcohol intake: current (A couple drinks a night) substance use type: does not use Family History Brother Cancer Esophageal cancer Father Alcoholism Gout Staph infection Mother Alzheimer's disease Breast cancer Osteoporosis Hypertension Colitis Depression Anxiety CVA (cerebral vascular accident) Grandmother Leukemia Grandfather No problems noted. Grandfather No problems noted. Grandmother No problems noted. Brother No problems noted. Sister No problems noted. Family/Other Breast cancer Social History Smoking Status: Never smoker alcohol intake: current (A couple drinks a night) substance use type: does not use Exam Initial Vital Signs Initial Vital Signs: Vital Signs Temperature 98.7 F 12/02/18 09:35 Pulse Rate 69 12/02/18 09:35 Respiratory Rate 16 12/02/18 09:35 Blood Pressure 111/84 12/02/18 09:35 Pulse Oximetry 98 12/02/18 09:35 Const General: cooperative and well developed Nutritional Appearance: well nourished Orientation: alert, awake, oriented x3 and not confused [facility] Head: normocephalic and atraumatic Ears: external ears normal and TM's normal bilaterally Nose: external nose normal and No nasal discharge Face and sinus: sinuses nontender, face symmetric, no sinus tenderness and No dry mucous membranes Mouth: oral mucosae normal and moist mucous membranes Teeth and gingiva: dentition normal Throat: tonsils normal and uvula midline Eyes General: appearance normal, both eyes and all related structures Eyelids: eyelids normal Conjunctivae: conjunctivae normal Sclera: sclerae normal Pupils: PERRL EOM: EOM intact bilaterally Neck Neck: normal visual inspection, trachea midline, No lymphadenopathy, No midline deformity and No JVD Lymphatic: No lymphedema Chest Chest: normal inspection of the chest Resp Effort & Inspection: normal respiratory effort, able to speak in complete sentences, no respiratory distress and no use of accessory muscles Auscultation: clear to auscultation bilaterally, no rales, no rhonchi and no wheezes Cardio Rate: regular rate Rhythm: regular rhythm Heart Sounds: no click, no gallops, no murmurs and no rubs Pulses: normal peripheral pulses GI Inspection: non-distended Palpation: soft, no hepatosplenomegaly, No guarding, No pulsatile mass and No tender Auscultation: normal bowel sounds Back/Spine/Pelvis Back: No CVA tenderness Cervical Spine: cervical ROM normal and No pain with cervical ROM Thoracic/Lumbar Spine: thoracic and lumbar spine normal to inspection Skin General: no rashes or lesions noted, No jaundice and No petechiae Other: Patient has tense edema of her left hand, with reddish purple discoloration and hemorrhagic bullae over the dorsum of the hand. Distal end of the splint padding is blood-soaked. Neuro General: alert, oriented x3, gait normal and no focal motor deficits Speech: speech normal Extrem General: full ROM, no clubbing, cyanosis or edema, no pedal edema and no calf tenderness Psych Appearance: well kempt Mental Status: mental status grossly normal Attitude: cooperative Thought Content: normal and suicidality Judgment: judgment good Procedures Orthopedic Fracture Reduction Fracture #1: Time Out Performed: Yes Side: left Fracture Reduction Location: radius and ulna Analgesia: procedural sedation Technique: direct manipulation and traction/counter-traction Post Reduction X-rays Demonstrate: acceptable reduction Post-reduction neuro exam: intact Post-reduction vascular exam: intact Splint Applied: Yes Patient Tolerated Procedure: Well and No complications Additional Comments: Sugar-tong splint was applied after reduction. Orthopedic Splinting/Casting Injury #1: Side: left Upper Extremity Injury Location: wrist (Sugar-tong) Post splinting neuro exam: intact Post splinting vascular exam: intact Placed by: Provider (With nursing assistance, under my direct supervision.) Procedural Sedation Patient Age: Patient is 5yrs or older Consent signed: Yes Time out performed: Yes Indication: fracture/dislocation reduction ASA Class: II Mallampati Airway Classification: Class I Preparation: food quality technician applied, pulse oximeter, supplemental O2 applied, suction/airway equipment at bedside and IV secured Midazolam: IV Midazolam dose (mg): 4 ED Sedation Level: Minimal Patient Tolerated Procedure: Well Complications: none Additional Comments: Patient seemed quite alert during the procedure, and carried on a conversation, but did tolerate the reduction well. Course Course Narrative: Split removed by nursing staff and patient found to have a deformed left wrist. She had no distinct wound, but ruptured bullae were noted beneath the splint end. X-ray of left wrist showed comminuted intra-articular both-bone fracture with displacement. I did consult to Dr. Bach of Orthopedics, who requests repeat reduction, replacement within the sugar-tong splint, and re-x-ray. This was done, as documented above, and patient was re-x-rayed. Clinical exam had indicated reduction during procedure, and repeat x-ray did indicate this, as well. I spoke with Dr. Bach again, and he did review the x-rays and felt the patient could follow up in his office in 2 days. The patient's hand discoloration and swelling had improved a bit in the emergency department, and she had had a good radial pulse by Doppler. The patient reported her hand was feeling better with removal of the very tight splint and replacement with a new splint after reduction. We have discussed home management of symptoms, as well as the usual indications for return. Orders Ordered: Discontinued Medications Ketorolac Tromethamine (Toradol) 15 mg IV NOW ONE Stop: 12/02/18 13:43 Last Admin: 12/02/18 13:48 Dose: 15 mg Midazolam HCl (Versed) 4 mg IV NOW ONE Stop: 12/02/18 12:32 Last Admin: 12/02/18 12:05 Dose: 4 mg Oxycodone/Acetaminophen (Percocet 5/325) 1 tab PO NOW ONE Stop: 12/02/18 13:43 Last Admin: 12/02/18 13:47 Dose: 1 tab Vital Signs - 8 hr 12/02/18 09:35 12/02/18 10:35 Temperature 98.7 F Pulse Rate 69 85 Respiratory Rate 16 17 Blood Pressure 111/84 Blood Pressure [Right Arm] 127/74 Pulse Oximetry 98 98 MDM - Extremity Injury (Upper) Medical Records Attestation: I reviewed the patient's medical records. Lab Data Attestation: I reviewed the patient's lab results. Result diagrams: 12/02/18 10:50 12/02/18 10:50 Lab Results 12/02/18 12/02/18 12/02/18 Range/Units 10:50 10:50 10:50 WBC 7.5 (4.5-11.0) X10^3/uL RBC 3.91 L (4.0-5.2) X10^6/uL Hgb 13.2 (12.0-16.0) g/dL Hct 38.4 (36-46) % MCV 98.2 (80-100) fL MCH 33.6 (26-34) PG MCHC 34.2 (30-36) % RDW 15.7 H (11.6-14.8) % Plt Count 206 (150-400) X10^3/uL Neut % (Auto) 80.5 H (50-75) % Lymph % (Auto) 10.9 L (25-40) % Jessamine % (Auto) 6.8 (3-14) % Eos % (Auto) 1.2 L (2-4) % Baso % (Auto) 0.6 (0-2) % Neut # (Auto) 6100 (7901-1515) /uL Lymph # (Auto) 800 L (7038-8092) /uL Jessamine # (Auto) 500 (0-900) /uL Eos # (Auto) 100 (0-450) /uL Baso # (Auto) 0 (0-100) /uL PT 11.5 (10.1-12.7) SECONDS INR 1.0 (0.9-1.3) Sodium 138 (137-145) mmol/L Potassium 3.2 L (3.4-5.1) mmol/L Chloride 101 (98-107) mmol/L Carbon Dioxide 31 (22-32) mmol/L BUN 8 (7-17) mg/dL Creatinine 0.60 (0.52-1.04) mg/dL Estimated GFR > 60.0 (>60) mL/min BUN/Creatinine Ratio 13.3 (6-22) Glucose 101 (80-110) mg/dL Calcium 9.6 (8.4-10.2) mg/dL Total Bilirubin 0.7 (0.2-1.3) mg/dL AST 35 (14-36) IU/L ALT 20 (9-52) IU/L Alkaline Phosphatase 84 (38-126) U/L Total Protein 6.8 (6.3-8.2) g/dL Albumin 3.9 (3.5-5.0) g/dL Globulin 2.9 (1.7-4.1) g/dL Albumin/Globulin Ratio 1.3 (1.0-2.8) Point of Care Testing Test Results Not applicable Imaging Data Left wrist x-ray: Radiologist's impression: ROCEDURE: XR WRIST LT MIN 3V INDICATIONS: injury TECHNIQUE: 3 views of the wrist were acquired. COMPARISON: None. FINDINGS: Bones: No dislocations. No suspicious bony lesions. There is a complex comminuted impacted and displaced fracture involving the distal radius and ulna, intra-articular Scaphoid view: Not obtained of the scaphoid visualized appears normal. Soft tissues: No suspicious soft tissue calcifications. IMPRESSION: Relatively severe central fractures involving the distal radius and ulna as discussed. Dictated by: Andrea Reddy M.D. on 12/02/2018 at 10:03 Approved by: Andrea Reddy M.D. on 12/02/2018 at 10:03 PROCEDURE: XR WRIST LT MIN 3V INDICATIONS: post-reduction TECHNIQUE: 2 views of the wrist were acquired. COMPARISON: [facility], CR, XR WRIST LT MIN 3V, 12/02/2018, 9:51. FINDINGS: There has been interval placement of an overlying splint, which does obscure evaluation of the underlying bony structures for fine detail. The fractures of the distal radius and ulna demonstrate mild interval improvement in alignment. However, there continues to be comminution and impaction of the distal radius fracture. There is mild impaction of the distal ulna fracture. No new fractures are identified. Severe degenerative changes are present involving the basal joint of the thumb. The bone mineralization appears decreased. Soft tissue swelling at the fracture site is present. No radiopaque foreign bodies are appreciated. IMPRESSION: Mild interval improvement in alignment of the distal radius and ulna fractures, status post closed reduction and casting. Dictated by: Doron Combs M.D. on 12/02/2018 at 12:06 Approved by: Doron Combs M.D. on 12/02/2018 at 12:08 Discharge Plan Departure Patient Disposition: Home Clinical Impression: Fracture of wrist, closed Qualifiers: Encounter type: subsequent encounter Laterality: left Fracture healing: with routine healing Qualified Code(s): S62.102D - Fracture of unspecified carpal bone, left wrist, subsequent encounter for fracture with routine healing Discharge Date/Time: 12/02/18 14:20 Interventions: ED Discharge Assessment Last Done: 12/02/18 14:18 Instructions: DI for Wrist Fracture Activity Restrictions/Additional Instructions: Your bones are in the much better alignment after reduction than they were before. Her case has been discussed with the on-call orthopedic surgeon, Dr. Bach. He states that the bones are reasonably well-aligned at this point and this may allow you to avoid having to have surgery. However, the bones are broken in quite a few pieces, so it remains to be seen how well they heal. For now, Dr. Bach it like you to remain in the splint, and see him the day after tomorrow, Sunday, for follow-up. Please call his office to set up an appointment for this. Prescriptions: New ondansetron 4 mg tablet,disintegrating 4 mg PO Q6-8H PRN (Reason: nausea and vomiting) Qty: 14 RF: 0 No Action fluoxetine 40 mg capsule 40 mg PO DAILY Qty: 90 RF: 1 alprazolam 0.5 mg tablet 0.5 mg PO BID PRN (Reason: anxiety) Qty: 60 RF: 1 acamprosate 333 mg tablet,delayed release (DR/EC) 666 mg PO TID Qty: 180 RF: 1 bupropion HCl [Wellbutrin XL] 150 mg tablet extended release 24 hr 150 mg PO QAM Qty: 90 RF: 1 aspirin 325 mg Tablet 325 mg PO DAILY RF: 0 oxycodone 5 mg Capsule 5 mg PO Q4-6H PRN (Reason: Pain (Scale Score 1-3)) RF: 0 Referrals: Tyson Agarwal MD [Primary Care Provider] -
[2018-12-02 11:02] LABS: Add Manual Diff / Slide Review NO; Basophils Absolute Auto 0 /uL (0-100); Basophils Percent Auto 0.6 % (0-2); Eosinophils Absolute Auto 100 /uL (0-450); Eosinophils Percent Auto 1.2 % (2-4); Hematocrit 38.4 % (36-46); Hemoglobin 13.2 g/dL (12.0-16.0); Lymphocytes Absolute Auto 800 /uL (1100-4500); Lymphocytes Percent Auto 10.9 % (25-40); Mean Corpuscular HGB Conc 34.2 % (30-36); Mean Corpuscular Hemoglobin 33.6 PG (26-34); Mean Corpuscular Volume 98.2 fL (80-100); Monocytes Absolute Auto 500 /uL (0-900); Monocytes Percent Auto 6.8 % (3-14); Neutrophils Absolute Auto 6100 /uL (1500-7000); Neutrophils Percent Auto 80.5 % (50-75); Platelet Count 206 X10^3/uL (150-400); Red Blood Cell Count 3.91 X10^6/uL (4.0-5.2); Red Cell Distribution Width 15.7 % (11.6-14.8); White Blood Cell Count 7.5 X10^3/uL (4.5-11.0)
[2018-12-02 11:09] LABS: Prothrombin Time 11.5 SECONDS (10.1-12.7)
[2018-12-02 11:14] LABS: Alanine Aminotransferase 20 IU/L (9-52); Albumin 3.9 g/dL (3.5-5.0); Albumin Globulin Ratio 1.3 (1.0-2.8); Alkaline Phosphatase 84 U/L (38-126); Aspartate Aminotransferase 35 IU/L (14-36); BUN Creatinine Ratio 13.3 (6-22); Bilirubin Total 0.7 mg/dL (0.2-1.3); Blood Urea Nitrogen 8 mg/dL (7-17); Calcium 9.6 mg/dL (8.4-10.2); Carbon Dioxide 31 mmol/L (22-32); Chloride 101 mmol/L (98-107); Estimated Glomerular Filt Rate > 60.0 mL/min (>60); Globulin 2.9 g/dL (1.7-4.1); Glucose 101 mg/dL (80-110); HEMOLYSIS < 15 (0-50); Potassium 3.2 mmol/L (3.4-5.1); Sodium 138 mmol/L (137-145); Total Protein 6.8 g/dL (6.3-8.2)
[2018-12-02] MEDS: MIDAZOLAM 2 MG/2 ML VIAL 4 MG IV (12:05)
--- NOTE | 2018-12-02 12:28 | DI.RAD.S_ITS ---
PROCEDURE: XR WRIST LT MIN 3V INDICATIONS: post-reduction TECHNIQUE: 2 views of the wrist were acquired. COMPARISON: [facility], CR, XR WRIST LT MIN 3V, 12/02/2018, 9:51. FINDINGS: There has been interval placement of an overlying splint, which does obscure evaluation of the underlying bony structures for fine detail. The fractures of the distal radius and ulna demonstrate mild interval improvement in alignment. However, there continues to be comminution and impaction of the distal radius fracture. There is mild impaction of the distal ulna fracture. No new fractures are identified. Severe degenerative changes are present involving the basal joint of the thumb. The bone mineralization appears decreased. Soft tissue swelling at the fracture site is present. No radiopaque foreign bodies are appreciated. IMPRESSION: Mild interval improvement in alignment of the distal radius and ulna fractures, status post closed reduction and casting. Dictated by: Doron Combs M.D. on 12/02/2018 at 12:06 Approved by: Doron Combs M.D. on 12/02/2018 at 12:08
[2018-12-02] MEDS: OXYCODONE/ACETAMINOPHEN 5/325 TABLET 1 TAB PO (13:47)
[2018-12-02] MEDS: KETOROLAC 60 MG/2 ML VIAL 15 MG IV (13:48)
== END 2018-12-02 14:20 | disposition home or self-care (01) ==
PROVIDERS: Emergency Provider Emergency Medicine; Family Provider Student in an Organized Health Care Education/Training Program; PCP Student in an Organized Health Care Education/Training Program
DX: S62.102D Fracture of unspecified carpal bone, left wrist, subsequent encounter for fracture with routine healing (principal)
CPT/HCPCS: 25605; 36591; 73100; 73110; 80053; 85025; 85610; 94770; 96374; 99152; 99284; 99285; J1885; J2250

== ENCOUNTER 2018-12-12 09:43 | Day surgery (SDC) | payer MEDICARE, SELFPAY ==
[2018-12-09 07:51] VITALS: BMI 26.0
[2018-12-12] VITALS (9 sets, daily range): BP systolic 93–135; BP diastolic 40–90; PULSE 76–99; RESP 12–16; TEMP 36.6–37.1; O2SAT 90–97; BMI 26.0
[2018-12-12] MEDS: LACTATED RINGERS 1,000 ML 42 ML IV (10:15)
[2018-12-12] MEDS: fentaNYL 100 MCG/2 ML INJ 50 MCG IV ×2 (10:24→10:29)
--- NOTE | 2018-12-12 12:40 | PM.PREOP ---
Pre-operative Note Interval Note History & Physical reviewed/Exam performed by Physician: Yes Changes to H&P: No
[2018-12-12] MEDS: CEFAZOLIN 2 GM/100 ML FROZ.PIGGY IV (12:43)
[2018-12-12] MEDS: BUPIVACAINE 0.5% W/ EPI (PF) VIAL 30 ML INJ (13:15)
--- NOTE | 2018-12-12 14:32 | PM.OP.1 ---
Operative Date/Time/Diagnoses Date of procedure: 12/12/18 Time of procedure: 13:00 Pre-op diagnosis: Left distal radius as well as distal ulna fracture Post-op diagnosis: same Procedure & Clinicians Procedure: Open reduction internal fixation of a comminuted intra-articular distal radius fracture. Open reduction internal fixation of a distal ulnar fracture. Same procedure as scheduled: Yes Indications: Distal radius and ulnar fracture. Surgeon: Lopez Zarco Formula Clerk: Angela Galvez Anesthesia Type: General Operative Notes Findings: Comminuted intra-articular fracture involving the distal radius. Distal ulnar fracture involving the ulnar neck. Closure Type: primary Prosthetic devices, grafts, tissues, transplants, or devices: Trimed distal radius as well as distal ulna plate Estimated Blood Loss (mL): 10 Blood products transfused: none Tourniquet time (min): 90 Procedure in detail: On date of service, patient was met in the holding area where the operative site was signed and witnessed by the OR staff. The surgery was once again discussed with the patient and any remaining questions or concerns were answered to the patient's full satisfaction. Time-out was performed verifying patient's name procedure and operative site. Patient was taken back to the operating theater and placed on the operating table in a supine position. Great care was taken to ensure that all bony prominences were appropriately padded. Well-padded tourniquet was placed up along the upper extremity. Another time-out was performed verifying patient's name, procedure, and operative site. The upper extremity was then prepped and draped in the normal sterile fashion. Esmarch was used to exsanguinate the limb and the tourniquet was turned up to 250 mm of mercury. Fifteen blade was used to expose the distal radius. An incision was made over the FCR tendons. The FCR tendon was retracted and the floor of the tendon was opened with a 15 blade. The FPL tendon and muscle belly was retracted ulnarly giving us good visualization of the pronator quadratus. The pronator quadratus was excised off the distal radius using the 15 blade and then finished with a periosteal elevator. Next the brachia radialis attachment to the radial styloid was released to help with overall reduction. Retractors were placed allowing us good visualization of the distal radius as well as the shaft. A reduction maneuver was performed and a K-wire was placed holding a provisional reduction of the intra-articular distal radius fracture. C-arm was brought in to verify overall reduction. Once we were satisfied with the overall reduction, a plate was placed and held provisionally with K-wires. C-arm was once again used to verify plate positioning as well as reduction. The plate was then fixated to the distal fragment using locking screws. Lateral C-arm views were used to verify that the screws were not intra-articular or broaching the dorsal cortex. At this point we are able to use the plate to help fine tune the overall reduction. Once we were satisfied with the overall reduction the plate was then secured to the shaft with a combination of locking and nonlocking screws. Final x-rays were obtained. The wound was copiously irrigated and closed in a layered fashion. We then turned our attention to the distal ulna. Fifteen blade was used to incise through skin and fascial tissue over the lateral border of the ulna going up towards the ulnar styloid. Sharp dissection was continued with a deep knife and an interval was made between ECU and FCU. This gave us good visualization of the fracture which involved the ulnar neck. Fracture was reduced and a ulnar pin plate was used to secure fixation. Nonlocking cortical screws were used to fixate the plate to the shaft and K-wires were used distally through the ulnar head. This provided a secure fixation of the ulnar fracture. The wound was then copiously irrigated and closed in layered fashion. Patient's hand was cleaned dried dressed. Patient had quite a bit of blistering from the fiberglass splint that was placed on in the emergency room and this was debrided and covered with Xeroform and Adaptic before being placed into a splint. Patient was taken to the PACU in stable condition. Complications: none Condition: stable Disposition: PACU Plan for aftercare: Splint for 2-5 days. This will be converted over to removable brace. No limits to range of motion of the wrist and fingers for the next 6 weeks. Will limit lifting to 2-3 lb for the next 6 weeks.
== END 2018-12-12 16:10 | disposition home or self-care (01) ==
PROVIDERS: Family Provider Student in an Organized Health Care Education/Training Program; PCP Student in an Organized Health Care Education/Training Program; Visit Provider Orthopaedic Surgery
PROC: (CPT 25608; principal; 2018-12-12 11:30)
DX: S52.532A Colles' fracture of left radius, initial encounter for closed fracture (principal); S52.692A Other fracture of lower end of left ulna, initial encounter for closed fracture; W19.XXXA Unspecified fall, initial encounter
CPT/HCPCS: 25608; 25652; J0360; J0690; J1100; J2405; J2704; J3010

== ENCOUNTER → 2019-09-08 14:38 | Outpatient (CLI) | payer OTHER, SELFPAY | PROVIDERS: Family Provider Student in an Organized Health Care Education/Training Program; PCP Student in an Organized Health Care Education/Training Program; Referring Provider Student in an Organized Health Care Education/Training Program; Visit Provider Student in an Organized Health Care Education/Training Program | DX: M81.0 Age-related osteoporosis without current pathological fracture (principal); Z78.0 Asymptomatic menopausal state | CPT/HCPCS: 77080 ==

== ENCOUNTER → 2020-06-01 19:32 | Outpatient (ROUT) | payer OTHER, SELFPAY ==
[2020-06-01 20:01] LABS: Alanine Aminotransferase 22 IU/L (<35); Albumin 4.1 g/dL (3.5-5.0); Albumin Globulin Ratio 1.3 (1.0-2.8); Alkaline Phosphatase 69 U/L (38-126); Aspartate Aminotransferase 36 IU/L (14-36); BUN Creatinine Ratio 6.8 (6-22); Bilirubin Total 0.7 mg/dL (0.2-1.3); Blood Urea Nitrogen 4 mg/dL (7-17); Calcium 9.6 mg/dL (8.4-10.2); Carbon Dioxide 28 mmol/L (22-32); Chloride 104 mmol/L (98-107); Cholesterol 155 mg/dL (140-199); Estimated Glomerular Filt Rate > 60.0 mL/min (>60); Globulin 3.2 g/dL (1.7-4.1); Glucose 97 mg/dL (80-110); HDL Cholesterol 54 mg/dL (40-60); HEMOLYSIS < 15 (0-50); LDL Cholesterol Calculated 79 mg/dL (<100); Potassium 3.7 mmol/L (3.4-5.1); Sodium 138 mmol/L (137-145); Total Protein 7.3 g/dL (6.3-8.2); Triglycerides 110 mg/dL (35-150)
== END ==
PROVIDERS: Family Provider Student in an Organized Health Care Education/Training Program; PCP Student in an Organized Health Care Education/Training Program; Visit Provider Internal Medicine
DX: M81.0 Age-related osteoporosis without current pathological fracture (principal); E78.5 Hyperlipidemia, unspecified
CPT/HCPCS: 80053; 80061

== ENCOUNTER → 2020-10-07 14:09 | Outpatient (CLI) | payer OTHER, SELFPAY ==
--- NOTE | 2020-10-07 14:15 | DI.RAD.S_ITS ---
PROCEDURE: XR SHOULDER RT MIN 2V INDICATIONS: RT SHOULDER PAIN TECHNIQUE: 3 views of the shoulder were acquired. COMPARISON: None. FINDINGS: Bones: No fractures or dislocations. No suspicious bony lesions. Severe glenohumeral joint degeneration. Osseous densities around glenohumeral joints are most likely intra-articular bodies. Probably os acromiale and degenerative changes of the acromioclavicular joint. Visualized ribs appear intact. Soft tissues: No suspicious soft tissue calcifications. Superior migration of the humeral head suggest chronic rotator cuff tendinopathy. IMPRESSION: 1. Severe shoulder joint degeneration. 2. Suspect chronic rotator cuff tendinopathy. 3. Multiple ossicles adjacent to the glenohumeral joint, probably intra-articular bodies. 4. If clinically indicated, MRI may be helpful. Dictated by: Brooke Patel M.D. on 10/07/2020 at 17:43 Approved by: Brooke Patel M.D. on 10/07/2020 at 17:46
== END ==
PROVIDERS: Family Provider Student in an Organized Health Care Education/Training Program; PCP Student in an Organized Health Care Education/Training Program; Referring Provider Internal Medicine; Visit Provider Internal Medicine
DX: M26.611 Adhesions and ankylosis of right temporomandibular joint (principal); M19.011 Primary osteoarthritis, right shoulder
CPT/HCPCS: 73030

== ENCOUNTER → 2021-09-26 16:33 | Outpatient (CLI) | payer OTHER, SELFPAY ==
--- NOTE | 2021-09-26 16:36 | DI.MG.S_ITS ---
BILATERAL DIGITAL SCREENING MAMMOGRAM 3D/2D WITH CAD: 09/26/2021 CLINICAL: Routine screening. Family history of breast cancer. Comparison is made to exams dated: 11/05/2018 mammogram, 11/10/2016 mammogram - [facility], 04/20/2015 mammogram, 04/09/2014 mammogram, and 07/10/2012 mammogram - [facility]. There are scattered fibroglandular elements in both breasts. Current study was also evaluated with a Computer Aided Detection (CAD) system. No significant masses, calcifications, or other findings are seen in either breast. There has been no significant interval change. IMPRESSION: NEGATIVE There is no mammographic evidence of malignancy. A 1 year screening mammogram is recommended. This exam was interpreted at Station ID: [id number]. NOTE: For mammograms, a report in lay terms will be sent to the patient. Approximately 15% of breast malignancies will not be visualized mammographically. In the management of a palpable breast mass, a negative mammogram must not discourage biopsy of a clinically suspicious lesion. Electronically Signed By: Michael brar/yesy:09/27/2021 10:03:50 letter sent: Normal Exam ACR BI-RADS Category 1: Negative [id number]
== END ==
PROVIDERS: Family Provider Student in an Organized Health Care Education/Training Program; PCP Student in an Organized Health Care Education/Training Program; Referring Provider Student in an Organized Health Care Education/Training Program; Visit Provider Student in an Organized Health Care Education/Training Program
DX: Z12.31 Encounter for screening mammogram for malignant neoplasm of breast (principal); Z80.3 Family history of malignant neoplasm of breast
CPT/HCPCS: 77063; 77067

== ENCOUNTER → 2022-10-23 | Outpatient (CLI) | payer OTHER, SELFPAY ==
--- NOTE | 2022-10-23 | DI.RAD.S_ITS ---
PROCEDURE: XR DEXA AXIAL SKELETON INDICATIONS: OSTEOPOROSIS SCREENING COMPARISON: None. FINDINGS: This blank DEXA report has been sent in error by the PACS system. The correct and complete report will be forthcoming in 1-2 days. Thank you for your patience and understanding. Dictated by: Che Shaffer MD, PhD on 10/24/2022 at 13:08 Approved by: Che Shaffer MD, PhD on 10/24/2022 at 13:08
--- NOTE | 2022-10-23 | DI.MG.S_ITS ---
BILATERAL DIGITAL SCREENING MAMMOGRAM 3D/2D WITH CAD: 10/23/2022 CLINICAL: Routine screening. Family history of breast cancer. Comparison is made to exams dated: 09/26/2021 mammogram, 11/05/2018 mammogram, and 11/10/2016 mammogram - [facility]. There are scattered areas of fibroglandular density in both breasts (category b / 25%-50% glandular tissue). Current study was also evaluated with a Computer Aided Detection (CAD) system. No significant masses, calcifications, or other findings are seen in either breast. There has been no significant interval change. IMPRESSION: NEGATIVE There is no mammographic evidence of malignancy. A 1 year screening mammogram is recommended. Based on the Tyrer Cuzick model (a risk assessment model) the patient's lifetime risk is 0.9% and her 10 year risk is 0.0%. According to the ACR, ACS, and NCCN guidelines, an annual breast MRI exam along with mammogram is recommended if the patient's lifetime risk is 20% or greater. This exam was interpreted at Station ID: [id number]. NOTE: For mammograms, a report in lay terms will be sent to the patient. Approximately 15% of breast malignancies will not be visualized mammographically. In the management of a palpable breast mass, a negative mammogram must not discourage biopsy of a clinically suspicious lesion. Electronically Signed By: Aníbal johnson/yesy:10/23/2022 15:43:48 letter sent: Normal Exam ACR BI-RADS Category 1: Negative 3341F
--- NOTE | 2022-10-23 15:07 | DI.DEXA.S_ITS ---
Bone Density Report Name: OCTAVIO FOSTER Age: 82 Sex: Female Ethnicity: White Date of : 1940 Indication: osteopenia; monitoring treatment; Referring Provider: VANESSA TERRELL Study: Bone densitometry was performed. Exam Date: October 23, 2022 Accession number: [id number] Bone Density: Region BMD T-score Z-score Classification AP Spine(L1-L4) 0.993 -0.5 2.2 Normal Femoral Neck (Left) 0.557 -2.6 -0.3 Osteoporosis Total Hip (Left) 0.682 -2.1 0.0 Osteopenia Femoral Neck (Right) 0.504 -3.1 -0.7 Osteoporosis Total Hip (Right) 0.673 -2.2 -0.1 Osteopenia Total Hip Mean 0.678 -2.2 -0.1 Osteopenia World Health Organization criteria for BMD impression classify patients as: Normal (T-score at or above -1.0), Osteopenia (T-score between -1.0 and -2.5), or Osteoporosis (T-score at or below -2.5). 10-year Fracture Risk: FRAX not reported because: Some T-score for Spine Total or Hip Total or Femoral Neck at or below -2.5 Treated for osteoporosis Previous Exams: -- Region Exam Age BMD T-score BMD Change BMD Change Date g/cm2 vs Baseline vs Previous -- AP Spine (L1-L4) 10/23/2022 82 0.993 -0.5 -0.050 (-4.8%)# -0.050 (-4.8%)# 09/08/2019 79 1.042 0.0 Total Hip(Left) 10/23/2022 82 0.682 -2.1 -0.032 (-4.4%)# -0.032 (-4.4%)# 09/08/2019 79 0.714 -1.9 Total Hip(Right) 10/23/2022 82 0.673 -2.2 -0.031 (-4.5%)# -0.031 (-4.5%)# 09/08/2019 79 0.704 -2.0 -- *Denotes significance at 95% confidence level, LSC for AP Spine = 0.022 g/cm2, LSC for Total Hip = 0.027 g/cm2 # Denotes dissimilar scan types or analysis methods Impression: The patient has osteoporosis, based on the Right Femoral Neck T-score. No significant bone loss was observed. Discussion: PATIENT UNDER TREATMENT WITH NO SIGNIFICANT BMD LOSS SINCE LAST EXAM. In an untreated patient, BMD typically declines with age. A lack of decline or gain is usually a sign that treatment is efficacious and fracture risk is reduced. It is important to ask patients whether they are taking their medications and to encourage continued and appropriate compliance with their osteoporosis therapies to reduce fracture risk. It is also important to review their risk factors and encourage appropriate calcium and vitamin D intakes, exercise, fall prevention and other lifestyle measures. Follow-Up: Consider a repeat BMD and Vertebral Fracture Assessment (VFA) exam in 2 years or sooner if medically necessary, to reassess this patient's status. Reported by: AILYN LOBO MD on 10/23/2022 3:15:00 PM.
== END ==
LOC: RAD 14:52
PROVIDERS: Family Provider Student in an Organized Health Care Education/Training Program; PCP Student in an Organized Health Care Education/Training Program; Referring Provider Student in an Organized Health Care Education/Training Program; Visit Provider Student in an Organized Health Care Education/Training Program
DX: Z12.31 Encounter for screening mammogram for malignant neoplasm of breast (principal); M81.0 Age-related osteoporosis without current pathological fracture; Z80.3 Family history of malignant neoplasm of breast
CPT/HCPCS: 77063; 77067; 77080

== ENCOUNTER → 2023-11-01 14:34 | Outpatient (CLI) | payer MEDICARE, SELFPAY ==
--- NOTE | 2023-11-01 14:35 | DI.MG.S_ITS ---
BILATERAL DIGITAL SCREENING MAMMOGRAM 3D/2D WITH CAD: 11/01/2023 CLINICAL: Routine screening. Family history of breast cancer. Comparison is made to exams dated: 10/23/2022 mammogram, 09/26/2021 mammogram, and 11/05/2018 mammogram - [facility]. There are scattered areas of fibroglandular density in both breasts (category b / 25%-50% glandular tissue). Current study was also evaluated with a Computer Aided Detection (CAD) system. There are benign post operative findings in the left breast. No significant masses, calcifications, or other findings are seen in either breast. There has been no significant interval change. IMPRESSION: BENIGN There is no mammographic evidence of malignancy. A 1 year screening mammogram is recommended. Based on the Tyrer Cuzick model (a risk assessment model) the patient's lifetime risk is 0.7% and her 10 year risk is 0.0%. According to the ACR, ACS, and NCCN guidelines, an annual breast MRI exam along with mammogram is recommended if the patient's lifetime risk is 20% or greater. This exam was interpreted at Station ID: [id number]. NOTE: For mammograms, a report in lay terms will be sent to the patient. Approximately 15% of breast malignancies will not be visualized mammographically. In the management of a palpable breast mass, a negative mammogram must not discourage biopsy of a clinically suspicious lesion. Electronically Signed By: Aníbal johnson/yesy:11/01/2023 15:05:12 letter sent: Normal Exam ACR BI-RADS Category 2: Benign Finding(s) 3342F
--- NOTE | 2023-11-01 14:36 | DI.US.S_ITS ---
PROCEDURE: US PELVIC COMPLETE INDICATIONS: PRE-COLPOCLIESIS ASSESSMENT OF PELVIS TECHNIQUE: Real-time scanning was performed of the pelvic organs, with image documentation. Additional endovaginal scanning was necessary due to incomplete visualization of the adnexal and endometrial structures by transabdominal scanning. COMPARISON: None. FINDINGS: Uterus: Significantly limited exam, uterus appears completely prolapsed. Ovaries: Not visualized. Other: Possible cystocele is seen. IMPRESSION: Significantly limited exam with prolapsed uterus. Ovaries are not seen. Possible cystocele. We strive to produce accurate, complete, and clear reports of imaging services. To assist us in improving patient care, this report was composed using standard report templates and voice recognition software. Therefore, it may contain abnormal punctuation, insertions and/or omissions. Occasional wrong-word or sound-alike substitutions may occur. Though we review the report and make efforts to correct it, we do recommend that the report be read carefully in proper context to recognize any text inaccuracies. Dictated by: Francis Thompson M.D. on 11/01/2023 at 16:42 Approved by: Francis Thompson M.D. on 11/01/2023 at 16:43
== END ==
PROVIDERS: Family Provider Student in an Organized Health Care Education/Training Program; PCP Student in an Organized Health Care Education/Training Program; Referring Provider Student in an Organized Health Care Education/Training Program; Visit Provider Student in an Organized Health Care Education/Training Program
DX: Z12.31 Encounter for screening mammogram for malignant neoplasm of breast (principal); Z01.818 Encounter for other preprocedural examination; N81.3 Complete uterovaginal prolapse; R92.323 Mammographic fibroglandular density, bilateral breasts
CPT/HCPCS: 76856; 77063; 77067

== ENCOUNTER → 2023-11-07 15:53 | Outpatient (CLI) | payer MEDICARE, SELFPAY ==
[2023-11-07 17:21] LABS: BUN Creatinine Ratio 17.4 (6-22); Blood Urea Nitrogen 12 mg/dL (7-17); Carbon Dioxide 27 mmol/L (22-32); Chloride 106 mmol/L (98-107); Estimated Glomerular Filt Rate > 60 mL/min (>60); Glucose 104 mg/dL (80-110); HEMOLYSIS < 15 (0-50); Potassium 3.8 mmol/L (3.4-5.1); Sodium 140 mmol/L (137-145)
== END ==
PROVIDERS: Family Provider Student in an Organized Health Care Education/Training Program; PCP Student in an Organized Health Care Education/Training Program; Referring Provider Internal Medicine; Visit Provider Internal Medicine
DX: I50.21 Acute systolic (congestive) heart failure (principal)
CPT/HCPCS: 36415; 80048

== ENCOUNTER → 2023-11-15 14:40 | Outpatient (CLI) | payer MEDICARE, SELFPAY ==
[2023-11-15 15:41] LABS: Appearance Urine UA SL CLOUDY; Bilirubin Urine UA NEGATIVE (NEGATIVE); Color Urine UA YELLOW; Glucose Urine UA 3+ g/dL (Negative); Ketones Urine UA NEGATIVE (NEGATIVE); Leukocyte Esterase Urine UA 1+ (NEGATIVE); Nitrite Urine UA NEGATIVE (Negative); Occult Blood Urine UA 1+ (Negative); Protein Urine UA TRACE (Negative); Urobilinogen Urine UA 0.2 E.U./dL (0.2)
[2023-11-15 15:53] LABS: pH Urine UA 5.5 (4.5-8.0)
[2023-11-15 15:54] LABS: RBC Urine 10-30/HPF (0-5/HPF); Urine Volume 10mL (spun)
[2023-11-15 15:55] LABS: Bacteria Urine Many (>30); Culture Indicated Urine Specimen Cultured; Squamous Epithelial Cell Urine 1-5 /HPF (0-5/HPF); WBC Urine 10-30/HPF (0-5/HPF)
== END ==
PROVIDERS: Family Provider Student in an Organized Health Care Education/Training Program; PCP Student in an Organized Health Care Education/Training Program; Referring Provider Obstetrics & Gynecology; Visit Provider Obstetrics & Gynecology
DX: R32 Unspecified urinary incontinence (principal)
CPT/HCPCS: 81001; 87086

== ENCOUNTER → 2023-11-28 15:34 | Outpatient (CLI) | payer MEDICARE, SELFPAY ==
[2023-12-03 17:54] LABS: Appearance Urine UA CLEAR; Bilirubin Urine UA NEGATIVE (NEGATIVE); Color Urine UA YELLOW; Glucose Urine UA 3+ g/dL (Negative); Ketones Urine UA NEGATIVE (NEGATIVE); Leukocyte Esterase Urine UA NEGATIVE (NEGATIVE); Nitrite Urine UA NEGATIVE (Negative); Occult Blood Urine UA TRACE-INTACT (Negative); Protein Urine UA NEGATIVE (Negative); Specific Gravity Urine UA <=1.005 (1.000-1.035); Urobilinogen Urine UA 0.2 E.U./dL (0.2)
[2023-12-03 17:57] LABS: pH Urine UA 5.5 (4.5-8.0)
[2023-12-03 18:04] LABS: Bacteria Urine Occasional (0-1); Culture Indicated Urine Cult Not Indicated; RBC Urine 1-5/HPF (0-5/HPF); Squamous Epithelial Cell Urine 0-1 /HPF (0-5/HPF); Urine Volume 10mL (spun); WBC Urine 0-1/HPF (0-5/HPF)
== END ==
PROVIDERS: Family Provider Student in an Organized Health Care Education/Training Program; PCP Student in an Organized Health Care Education/Training Program; Referring Provider Obstetrics & Gynecology; Visit Provider Obstetrics & Gynecology
DX: R30.0 Dysuria (principal)
CPT/HCPCS: 81001; 87086

== ENCOUNTER → 2024-10-23 10:03 | Outpatient (CLI) | payer OTHER, SELFPAY ==
--- NOTE | 2024-10-23 10:07 | DI.CT.S_ITS ---
PROCEDURE: CT CHEST ABD PEL W CON INDICATIONS: Weight loss TECHNIQUE: After the administration of intravenous contrast, 5 mm thick sections acquired from the lung apices to the symphysis. 5 mm coronal and sagittal reformats were performed, with additional 7 mm MIP reformats through the lungs. For radiation dose reduction, the following was used: automated exposure control, adjustment of mA and/or kV according to patient size. COMPARISON: [facility], CT, CT CHEST ABD PEL W CON, 06/25/2018, 15:27. FINDINGS: Image quality: Excellent. CHEST: Lower Neck: No enlarged lymph nodes. Thyroid: No thyroid nodules which require sonographic follow up, per consensus guidelines. Axillae: No enlarged lymph nodes. Chest Wall: Unremarkable. Lungs and Pleura: No pneumothorax or pleural effusions. The previously described ground-glass nodule in the right middle lobe has significantly decreased in size, now with a mild residual solid component measuring 3 mm (series 5, image 160). Heart: Heart size is normal. No pericardial effusion. Thoracic Vessels: Dilated main pulmonary artery. Mediastinum and Beatriz: No enlarged lymph nodes. Esophagus: No wall thickening. No hiatal hernia. ABDOMEN: Liver: No solid mass. Scattered subcentimeter hypoattenuating lesions, too small to characterize by CT but probably small cysts. Gallbladder: Absent. Absent. Biliary ducts: No biliary dilation. Pancreas: 4 mm hypoattenuating lesion in the inferior pancreatic head (series 2, image 103). Spleen: Size is within normal limits. Adrenal Glands: No adrenal nodules. Kidneys and Ureters: No hydronephrosis. No solid mass. No complex renal cystic lesion which requires follow up. Stomach and Bowel: Normal colonic caliber, without significant wall thickening. Colonic diverticulosis without evidence of diverticulitis. Peritoneum: No abnormal intraperitoneal fluid. No free air. Ventral Wall: No significant ventral hernia. Abdominal Nodes: No retroperitoneal or mesenteric adenopathy by size criteria. Vessels: Aorta and inferior vena cava are normal in size. Dilated gonadal veins, which can be seen in the setting of pelvic congestion syndrome. PELVIS: Pelvic Organs: Unremarkable. Bladder: No bladder wall thickening, accounting for underdistention. Pelvic Nodes: No enlarged lymph nodes. Miscellaneous: No inguinal hernias are seen. Bones: No aggressive osseous abnormality. IMPRESSION: No evidence of malignancy to explain the patient's weight loss. Consider colonoscopy if not up-to-date. Dilated main pulmonary artery measuring 4.4 cm. Findings are consistent with pulmonary hypertension. Near complete resolution of the ground-glass nodule in the right middle lobe, now representing a 3 mm solid component. Findings are probably post infectious/inflammatory, with residual nodule scar. Low-grade pulmonary adenocarcinoma is significantly less likely. Colonic diverticulosis without evidence of diverticulitis. 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 Consider further evaluation with MRI/MRCP (pancreatic mass protocol). Dictated by: Dimitri Dean M.D. on 10/23/2024 at 12:34 Approved by: Dimitri Dean M.D. on 10/23/2024 at 12:46
== END ==
LOC: CT 10:05
PROVIDERS: PCP Family Medicine; Referring Provider Family Medicine; Visit Provider Family Medicine
DX: K86.9 Disease of pancreas, unspecified (principal); K57.90 Diverticulosis of intestine, part unspecified, without perforation or abscess without bleeding; R91.1 Solitary pulmonary nodule; R63.4 Abnormal weight loss; R05.3 Chronic cough; Z90.49 Acquired absence of other specified parts of digestive tract
CPT/HCPCS: 71260; 74177; Q9967

== ENCOUNTER → 2025-03-14 13:06 | Outpatient (CLI) | payer OTHER, SELFPAY ==
--- NOTE | 2025-03-14 13:07 | DI.MRI.S_ITS ---
PROCEDURE: MR SHOULDER LT WO CON INDICATIONS: swelling left shoulder TECHNIQUE: Noncontrast oblique coronal T2 fast spin echo with fat saturation, oblique sagittal T1 spin echo and T2 fast spin echo with fat saturation, axial T1 spin echo and T2 fast spin echo with fat saturation through the shoulder. COMPARISON: [facility], MR, MR SHOULDER LEFT WITHOUT CONTRAST, 09/25/2021, 12:39. FINDINGS: Image quality: Degraded by motion artifact. Rotator cuff: There is full-thickness tearing of the entire supraspinatus as well as the mid and anterior infraspinatus tendons at the humeral insertion sites with associated supraspinatus and infraspinatus atrophy. Moderate grade intrasubstance tearing of the upper, mid, and lower subscapularis tendon at the humeral insertion site extending to the musculotendinous junction with associated subscapularis atrophy. Teres minor is intact. Bones and bursae: No bone marrow contusions or fractures. Superior subluxation of the humeral head. Moderate glenohumeral and acromioclavicular joint degeneration. The acromion demonstrates conventional anatomy, without an os acromiale. No pathologic subacromial-subdeltoid or subcoracoid bursal fluid is present. Capsule and soft tissues: Large glenohumeral joint effusion with multiple regions of high T1 and low T2 signal intensity within the effusion, suggestive of hemarthrosis. Diffuse glenoid labral tearing. Biceps tendon anchor is not well seen secondary to motion artifact The rotator interval appears normal, without fibrosis. The coracohumeral ligament is normal in thickness. IMPRESSION: 1. 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 2. Full-thickness tearing and atrophy of the supraspinatus and infraspinatus tendons. Partial thickness tearing and atrophy of the subscapularis tendon. 3. Acromioclavicular and glenohumeral joint osteoarthritis. There is associated: Oil labral tearing. 4. Suboptimal evaluation of the biceps tendon. Dictated by: Ghazal Fried M.D. on 03/16/2025 at 13:45 Approved by: Ghazal Fried M.D. on 03/16/2025 at 13:48
== END ==
LOC: MRI 13:06
PROVIDERS: PCP Family Medicine; Referring Provider Family Medicine; Visit Provider Family Medicine
DX: M75.122 Complete rotator cuff tear or rupture of left shoulder, not specified as traumatic (principal); S43.402A Unspecified sprain of left shoulder joint, initial encounter; M25.512 Pain in left shoulder; M19.012 Primary osteoarthritis, left shoulder
CPT/HCPCS: 73221